=== PATIENT | male | born 1935 | race Caucasian/White ===

== ENCOUNTER → 2017-01-17 | Outpatient (CLI) | payer MEDICARE ==
[~2017-01-17] MED LIST: ALPHAGAN P5 ML OU; ASPIR 8181 MG PO; BACTROBAN CREAM15 GM TOP; FISH OIL + VIT1 EACH PO; HEARTBURN RELI150 M1 PO; HYZAAR 100-251 EACH PO; LATANOPROST2.5 ML OU; LIPITOR TAB 1010 MG PO; LIPITOR TAB 2020 MG PO; METFORMIN HCL1000 M1 PO; MONTELUKAST SOD10 MG PO; NAMENDA10 MG PO; PLAVIX 75 MG TA75 MG PO; SALINE NASAL SP88 ML
== END ==
LOC: HEART 5 12-13 10:00
DX: I73.9 Peripheral vascular disease, unspecified (principal); M79.606 Pain in leg, unspecified; R60.9 Edema, unspecified
CPT/HCPCS: 93925

== ENCOUNTER → 2017-02-23 | Outpatient (CLI) | payer MEDICARE ==
[2017-02-23 10:00] LABS: HEMOGLOBIN 11.7 gm/dl (14.0-17.5); RED BLOOD COUNT 3.91 M/UL (4.20-5.50); WHITE BLOOD COUNT 9.1 K/UL (4.5-11.0)
[2017-02-23 10:13] LABS: BUN/CREATININE RATIO 18 (0-10)
== END ==
LOC: LAB 08:47
PROVIDERS: Internal Medicine
DX: Z01.812 Encounter for preprocedural laboratory examination (principal)
CPT/HCPCS: 36415; 80048; 85025; 85610; 85730

== ENCOUNTER → 2017-02-26 | Outpatient (CLI) | payer MEDICARE | END | disposition home or self-care (01) | LOC: CATH 06:57 | DX: I70.248 Atherosclerosis of native arteries of left leg with ulceration of other part of lower leg (principal); L97.829 Non-pressure chronic ulcer of other part of left lower leg with unspecified severity; I70.221 Atherosclerosis of native arteries of extremities with rest pain, right leg; I70.92 Chronic total occlusion of artery of the extremities; M12.9 Arthropathy, unspecified; I10 Essential (primary) hypertension; E78.5 Hyperlipidemia, unspecified; E11.9 Type 2 diabetes mellitus without complications; S89.92XA Unspecified injury of left lower leg, initial encounter; Z79.82 Long term (current) use of aspirin; Z79.84 Long term (current) use of oral hypoglycemic drugs; Z79.899 Other long term (current) drug therapy; Z87.891 Personal history of nicotine dependence; R27.0 Ataxia, unspecified; R07.9 Chest pain, unspecified; R60.9 Edema, unspecified; G60.9 Hereditary and idiopathic neuropathy, unspecified; I34.1 Nonrheumatic mitral (valve) prolapse; G47.33 Obstructive sleep apnea (adult) (pediatric); Q25.3 Supravalvular aortic stenosis; I87.8 Other specified disorders of veins; I83.019 Varicose veins of right lower extremity with ulcer of unspecified site; G60.0 Hereditary motor and sensory neuropathy; Z87.19 Personal history of other diseases of the digestive system | CPT/HCPCS: 36245; 75630; 82962; 85347; C1725; C1769; J1644; J2250; J3010; J7030; Q9965 ==

== ENCOUNTER 2020-11-03 20:41 | Inpatient (IN) | payer MEDICARE, OTHER ==
[~2020-11-03] VITALS: Ht 162.6 cm; Wt 86.2 kg
[~2020-11-03 20:41] MED LIST changes: +ALPHAGAN P OP SO5 ML EYEBOTH; +ARICEPT10 MG PO; +ASPIRIN CHEWABL81 MG PO; +CEFDINIR300 MG PO; +CELEXA20 MG PO; +COZAAR100 MG PO; +DOCUSATE SODIU100 MG PO; +FAMOTIDINE20 MG PO; +FISH OIL 1,0001 EACH PO; +INVANZ 1 GM VIAL1 GM IV; +K-TAB ER20 MEQ PO; +LACTULOSE10 GM/15 M PO; +LASIX40 MG PO; +LATANOPROST 0.7.5 ML OU; +LEVEMIR FL100 UNIT/1 SQ; +MIRALAX17 GM PO; +NOVOLOG FL100 UNIT/1 INJ; +NOVOLOG100 UNIT/1 SQ; +OSTERA TABLET1 EACH PO; +TIMOLOL 0.5%-LAT5 ML OU; +TYLENOL 500 MG500 MG PO
[2020-11-03 21:24] LABS: HEMOGLOBIN 14.9 gm/dl (14.0-17.5); RED BLOOD COUNT 5.13 M/UL (4.20-5.50); WHITE BLOOD COUNT 10.2 K/UL (4.5-11.0)
[2020-11-03 21:38] LABS: BUN/CREATININE RATIO 33 (0-10)
[2020-11-04] MEDS ORDERED: CYANOCOBAL1000 MCG/1 INJ (00:36)
[2020-11-04] MEDS ORDERED: VITAMIN D325 MC6 PO (00:45)
[2020-11-04] MEDS ORDERED: OMNICEF 300 MG300 MG PO (00:49)
[2020-11-04] MEDS ORDERED: SENNA-S 8.6-501 EACH PO (00:51)
[2020-11-04] MEDS ORDERED: [UNRECOGNIZED DRUG - OTHER] PO (00:52)
[2020-11-04] MEDS ORDERED: PROAIR DIGIHAL90 MCG INH (00:54)
[2020-11-04] MEDS ORDERED: DULCOLAX10 MG PR (00:58)
[2020-11-04] MEDS ORDERED: DECADRON6 MG PO (01:00)
[2020-11-04 04:52] LABS: HEMOGLOBIN 13.7 gm/dl (14.0-17.5); RED BLOOD COUNT 4.77 M/UL (4.20-5.50); WHITE BLOOD COUNT 9.4 K/UL (4.5-11.0)
[2020-11-04 05:10] LABS: BUN/CREATININE RATIO 31 (0-10)
[2020-11-04 10:36] LABS: BUN/CREATININE RATIO 43 (0-10)
[2020-11-04 16:04] LABS: BUN/CREATININE RATIO 44 (0-10)
[2020-11-04 21:53] LABS: BUN/CREATININE RATIO 49 (0-10)
[2020-11-05 04:19] LABS: BUN/CREATININE RATIO 50 (0-10)
[2020-11-05 09:29] LABS: BUN/CREATININE RATIO 45 (0-10)
[2020-11-05 15:37] LABS: BUN/CREATININE RATIO 46 (0-10)
[2020-11-08] MEDS ORDERED: ENEMA BAG1 EAC1 PR (13:55)
[2020-11-08] MEDS ORDERED: LEVEMIR FL100 UNIT/1 SQ (13:59)
[2020-11-08] MEDS ORDERED: DULCOLAX10 MG PR (14:02)
== END 2020-11-08 17:31 | DRG 177 ==
LOC: ER1 20:41 → M/S 21:05 → CDU 21:05 → M/S 11-04 16:10
PROVIDERS: Internal Medicine; Preventive Medicine Occupational Medicine; ADMIT Internal Medicine
PROC: 8E0ZXY6 Isolation (ICD-10-PCS; principal; 2020-11-04)
PROC: XW033E5 Introduction of Remdesivir Anti-infective into Peripheral Vein, Percutaneous Approach, New Technology Group 5 (ICD-10-PCS; 2020-11-04)
DX: U07.1 COVID-19 (principal); J96.01 Acute respiratory failure with hypoxia; R53.2 Functional quadriplegia; F03.90 Unspecified dementia, unspecified severity, without behavioral disturbance, psychotic disturbance, mood disturbance, and anxiety; I10 Essential (primary) hypertension; J45.909 Unspecified asthma, uncomplicated; Z66 Do not resuscitate; E78.5 Hyperlipidemia, unspecified; G47.33 Obstructive sleep apnea (adult) (pediatric); Z88.8 Allergy status to other drugs, medicaments and biological substances; Z80.6 Family history of leukemia; Z83.3 Family history of diabetes mellitus; R14.0 Abdominal distension (gaseous); L89.322 Pressure ulcer of left buttock, stage 2; F41.9 Anxiety disorder, unspecified; Z74.01 Bed confinement status; R53.81 Other malaise
CPT/HCPCS: 36415; 71045; 74018; 80048; 80053; 82962; 83036; 83930; 84295; 85025; 94664; 94760; 96365; 96366; 96367; 96375; 96376; 99285; A6212; J1100; J1650; J3480; J7030; J7070; Q9965

== ENCOUNTER 2020-11-14 01:58 | Inpatient (IN) | payer MEDICARE, OTHER ==
[~2020-11-14] VITALS: Ht 177.8 cm; Wt 89.0 kg
[~2020-11-14 01:58] MED LIST changes: +CYANOCOBAL1000 MCG/1 INJ; +DECADRON6 MG PO; +DULCOLAX10 MG PR; +ENEMA BAG1 EAC1 PR; +OMNICEF 300 MG300 MG PO; +PROAIR DIGIHAL90 MCG INH; +SENNA-S 8.6-501 EACH PO; +VITAMIN D325 MC6 PO; +[UNRECOGNIZED DRUG - OTHER] PO
[2020-11-14 03:43] LABS: HEMOGLOBIN 14.3 gm/dl (14.0-17.5); RED BLOOD COUNT 4.97 M/UL (4.20-5.50); WHITE BLOOD COUNT 9.5 K/UL (4.5-11.0)
[2020-11-14 21:24] LABS: BUN/CREATININE RATIO 36 (0-10)
[2020-11-15 04:55] LABS: WHITE BLOOD COUNT 8.2 K/UL (4.5-11.0)
[2020-11-15 04:56] LABS: HEMOGLOBIN 10.9 gm/dl (14.0-17.5); RED BLOOD COUNT 3.76 M/UL (4.20-5.50)
[2020-11-15 06:46] LABS: BUN/CREATININE RATIO 29 (0-10)
[2020-11-15] MEDS ORDERED: ZOSYN 3.373.375 GM/5 IV (11:31)
[2020-11-15 18:39] LABS: BUN/CREATININE RATIO 27 (0-10)
[2020-11-15 22:43] LABS: BUN/CREATININE RATIO 29 (0-10)
[2020-11-16 06:13] LABS: HEMOGLOBIN 12.7 gm/dl (14.0-17.5)
[2020-11-16 06:14] LABS: RED BLOOD COUNT 4.48 M/UL (4.20-5.50); WHITE BLOOD COUNT 16.6 K/UL (4.5-11.0)
[2020-11-16 06:26] LABS: BUN/CREATININE RATIO 29 (0-10)
[2020-11-16 13:58] LABS: BUN/CREATININE RATIO 26 (0-10)
[2020-11-17 03:49] LABS: HEMOGLOBIN 11.5 gm/dl (14.0-17.5); RED BLOOD COUNT 4.05 M/UL (4.20-5.50); WHITE BLOOD COUNT 14.2 K/UL (4.5-11.0)
[2020-11-17 04:25] LABS: BUN/CREATININE RATIO 27 (0-10)
[2020-11-17 07:21] LABS: BUN/CREATININE RATIO 30 (0-10)
[2020-11-18 04:50] LABS: HEMOGLOBIN 11.5 gm/dl (14.0-17.5); RED BLOOD COUNT 4.09 M/UL (4.20-5.50); WHITE BLOOD COUNT 13.1 K/UL (4.5-11.0)
[2020-11-18 05:11] LABS: BUN/CREATININE RATIO 26 (0-10)
[2020-11-19] MEDS ORDERED: MORPHINE SULFATE IV (11:25)
[2020-11-19] MEDS ORDERED: ATIVAN IV/IM2 MG/ML IVP (11:25)
--- NOTE | 2020-11-19 14:50 | NUR ---
GAVE REPORT TO JACQUES AT THE CORRECTION AT THIS TIME.
--- NOTE | 2020-11-19 14:53 | NUR ---
[facility] WITH EMS STATES THAT THEY WILL SEND A TRUCK TO TRANSPORT PATIENT IN AROUND 45 MINUTES.
== END 2020-11-19 15:40 | DRG 177 ==
LOC: ER1 01:58 → PROG CARE 04:52 → CDU 04:52 → PROG CARE 11-16 02:02 → MED SURG 4 11-18 21:26
PROVIDERS: Emergency Medicine; Internal Medicine; ADMIT Internal Medicine
PROC: 8E0ZXY6 Isolation (ICD-10-PCS; principal; 2020-11-14)
DX: U07.1 COVID-19 (principal); J12.82 Pneumonia due to coronavirus disease 2019; R53.2 Functional quadriplegia; J96.21 Acute and chronic respiratory failure with hypoxia; N17.9 Acute kidney failure, unspecified; E87.0 Hyperosmolality and hypernatremia; E87.6 Hypokalemia; F03.90 Unspecified dementia, unspecified severity, without behavioral disturbance, psychotic disturbance, mood disturbance, and anxiety; Z66 Do not resuscitate; Z51.5 Encounter for palliative care; E11.9 Type 2 diabetes mellitus without complications; R77.8 Other specified abnormalities of plasma proteins; E78.5 Hyperlipidemia, unspecified; R13.10 Dysphagia, unspecified; E88.09 Other disorders of plasma-protein metabolism, not elsewhere classified; G47.33 Obstructive sleep apnea (adult) (pediatric); J45.909 Unspecified asthma, uncomplicated; R62.7 Adult failure to thrive; Z83.3 Family history of diabetes mellitus; Z80.6 Family history of leukemia; Z79.82 Long term (current) use of aspirin; Z79.4 Long term (current) use of insulin; Z88.8 Allergy status to other drugs, medicaments and biological substances; Z79.899 Other long term (current) drug therapy; Z68.25 Body mass index [BMI] 25.0-25.9, adult
CPT/HCPCS: 36415; 36600; 70450; 71045; 80048; 80053; 80202; 81001; 82550; 82553; 82803; 82962; 83605; 83690; 83735; 83874; 83880; 84100; 84132; 84484; 85025; 85610; 85730; 87040; 87449; 92526; 92610; 93005; 94640; 94664; 94760; 96365; 96366; 96367; 96372; 96375; 96376; 99285; A6212; C1751; J0610; J1100; J2543; J3370; J3480; J7050; J7070; P9047; U0002